=== PATIENT | male | born 1960 | race Caucasian/White ===

== ENCOUNTER → 2019-05-25 19:13 | Emergency (ER) | payer SELFPAY ==
[2019-05-25 19:37] VITALS: BP 132/77
--- NOTE | 2019-05-25 19:58 | UC ---
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 He states over his shift today he was doing a lot of repetitive motion and felt some pain in his right wrist. He denies any numbness or tingling. He denies any specific injury. - History Of Current Complaint Chief Complaint: UCUpperExtremity Stated Complaint: WRIST INJURY Time Seen by Provider: 05/25/19 19:54 Hx Obtained From: Patient ?: No Onset/Duration: Gradual Onset, Lasting Hours Severity Initially: Mild Severity Currently: Mild Pain Intensity: 1 Character Of Pain: Dull, Aching Aggravating Factor(s): Movement, Flexion, Extension Alleviating Factor(s): Rest Associated Signs And Symptoms: Positive: Negative - Allergies/Home Medications Allergies/Adverse Reactions: Allergies Allergy/AdvReac Type Severity Reaction Status Date / Time Penicillins Allergy Rash Verified 05/25/19 19:32 Home Medications: Home Medications Ibuprofen TAB* [Motrin TAB* 400 MG] 400 mg PO Q6H PRN 05/25/19 [History Confirmed 05/25/19] PMH/Surg Hx/FS Hx/Imm Hx Previously Healthy: Yes - Surgical History Surgical History: Yes Surgery Procedure, Year, and Place: L knee - Family History Known Family History: Positive: Unknown - Social History Occupation: Employed Full-time Lives: With Family Alcohol Use: Occasionally Substance Use Type: None Smoking Status (MU): Current Some Day Smoker Review of Systems All Other Systems Reviewed And Are Negative: Yes Musculoskeletal: Positive: Other: - Mild pain right wrist especially with flexion or extension. No specific injury. He denies any numbness or tingling. Is Patient Immunocompromised?: No Physical Exam Triage Information Reviewed: Yes Appearance: Well-Appearing, No Pain Distress, Well-Nourished Vital Signs: Initial Vital Signs Temp 98 F 05/25/19 19:33 Pulse 70 05/25/19 19:33 Resp 16 05/25/19 19:33 BP 132/77 05/25/19 19:33 Pulse Ox 94 05/25/19 19:33 Vital Signs Reviewed: Yes Musculoskeletal Exam: Normal Musculoskeletal: Positive: Strength Intact, ROM Intact, Other: - Good peripheral pulses, neuro sensation and capillary refill, full range of motion. Wrist is nontender on palpation. No erythema, bruising, deformity or swelling is noted. Neurological Exam: Normal Psychological Exam: Normal Skin Exam: Normal Hand/Wrist Course/Dx - Course Course Of Treatment: The patient is comfortable here. He was given a cock-up splint to wear for comfort. He is to elevate as much as possible and may apply heat to the sore area. He can take Tylenol or ibuprofen for pain and is to follow-up with the orthopedist in 3 or 4 days if no improvement. He is to avoid repetitive motion. - Differential Dx/Diagnosis Provider Diagnosis: Tendonitis of wrist, right Discharge ED - Sign-Out/Discharge Documenting (check all that apply): Patient Departure All imaging exams completed and their final reports reviewed: No Studies - Discharge Plan Condition: Fair Disposition: HOME Patient Education Materials: Tendinitis (ED) Referrals: Michael Cannon MD [Primary Care Provider] - Shira Ortega MD [Medical Doctor] - Additional Instructions: Keep the wrist splint on for comfort, take ibuprofen every 8 hours with food for pain. Avoid repetitive motion. Elevate as much as possible. He may apply heat to the sore area. If there is no improvement in 3 or 4 days, you are to follow-up with the orthopedist. - Billing Disposition and Condition Condition: FAIR Disposition: Home
== END | disposition home or self-care (01) ==
LOC: UCEAST 19:13
DX: M77.9 Enthesopathy, unspecified (principal); F17.200 Nicotine dependence, unspecified, uncomplicated; Z88.0 Allergy status to penicillin